=== PATIENT | male | born 1980 | race Caucasian/White ===

== ENCOUNTER 2017-10-12 16:22 | Emergency (ER) | payer SELFPAY ==
[2017-10-12 16:30] VITALS: BP 135/72
[2017-10-12] MEDS ORDERED: 0.9 % SODIUM CHLORIDE 1,000 ML IV SCH (16:30)
[2017-10-12] MEDS: ONDANSETRON HCL/PF 4 MG/ 2ML VIAL IVP ONE ×2 (16:40→18:23)
[2017-10-12] MEDS: 0.9 % SODIUM CHLORIDE 1,000 ML IV SCH ×2 (16:40→17:33)
[2017-10-12] MEDS: 0.9 % SODIUM CHLORIDE 1,000 ML IV ONE (17:03)
--- NOTE | 2017-10-12 17:10 | ED Physician Documentation ---
General Adult - HISTORIAN Historian: patient - HPI Stated Complaint: N/V Chief Complaint: General Adult Additional Information: Olman has been working inthe heat for the last several days. Has been sweating a lot. Has not urinated since this AM. States that he has been trying to drink a lot of fluids. Feels that he may have gotten overheated today. Several hours ago he became nauseated and has vomited several time, some clesr emisis. Has started to have some muscle cramps/aches. Has a mild headache. Feels the same way he did before when he became overheated. Has not had any fever or chills. No one else at home is sick. No rash noted. Onset: hours Timing: still present Severity: moderate - ROS CONST: sweating, weakness. denies: fever, chills CVS/RESP: none. denies: chest pain, shortness of breath GI/: abdominal pain (mild cramping), vomiting, nausea. denies: problems urinating, diarrhea MS/SKIN/LYMPH: denies: rash NEURO/PSYCH: headache, dizziness, tingling - PAST HX Past History: none Other History: none Surgeries/Procedures: none Allergies/Adverse Reactions: Allergies Allergy/AdvReac Type Severity Reaction Status Date / Time No Known Allergies Allergy Verified 10/12/17 16:29 Home Medications: Ambulatory Orders Medication Instructions Recorded NK [NK] 10/12/17 - SOCIAL HX Smoking History: less than 1 pack/day Alcohol Use: occasionally Drug Use: marijuana - FAMILY HX Family History: No - VITAL SIGNS Vital Signs: Vital Signs Temp Pulse Resp BP Pulse Ox 98.6 F 76 17 135/72 100 10/12/17 16:22 10/12/17 16:22 10/12/17 16:22 10/12/17 16:22 10/12/17 16:22 - REVIEWED ASSESSMENTS Nursing Assessment Reviewed: Yes Vitals Reviewed: Yes Progress - Progress Progress: 17:22 Patient complaining of some abd cramping pain, no diarrhea 17:54 Patient states that he is feeling some better. 18:28 Patient discomfort is down to 4 from a 10, still feels nauseated some. No further vominting noted. Muscle cramps are better . 18:45 Conitnues to slowly get better. Patient feels that he will be able to keep fluids down. Was given option of getting a third liter or being admitted observation but did not want to do so. ED Results Lab/Radiology - Orders Orders: ED Orders Category Date Time Status CBC/PLATELET/DIFF Routine Lab 10/12/17 Ordered CMP Routine Lab 10/12/17 Ordered URINALYSIS Routine Lab 10/12/17 Uncollected 0.9 % Sodium Chloride [Normal Saline] 1,000 ml Med 10/12/17 16:30 Ordered IV .Q1H Ondansetron HCl/Pf [Zofran 4 mg/2 ml] Med 10/12/17 16:27 Discontinued 4 mg IVP NOW ONE General Adult Physical Exam - PHYSICAL EXAM GENERAL APPEARANCE: mild distress EENT: eye inspection normal, dry mucous membranes NECK: normal inspection, thyroid normal, supple. No: lymphadenopathy, stiff neck RESPIRATORY: no resp distress, chest non-tender, breath sounds normal. No: wheezes, rales, rhonchi CVS: reg rate & rhythm, heart sounds normal, equal pulses, no murmur ABDOMEN: soft, no organomegaly, normal bowel sounds, no abdominal bruit, no distension, non-tender BACK: normal inspection SKIN: normal color, other (moist) NEURO: oriented X3, mood/affect nml, cognition normal Discharge Clincal Impression: Heat exhaustion Qualifiers: Encounter type: initial encounter Qualified Code(s): T67.5XXA - Heat exhaustion , unspecified, initial encounter Referrals: Primary Doctor,No [Primary Care Provider] - 2 Days Additional Instructions: You need to be drinking a lot of fluids with some sports drink. You need to be drinking enough that when you urinate it is light yellow color. Home and rest in a cool environment. If you have any further problems to return to the ED. Condition: Stable Disposition: 01 HOME, SELF-CARE Decision to Admit: NO Date of Decison to Admit: 10/12/17 Decision Time: 18:37
[2017-10-12 17:11] LABS: BASOPHILS % 0.2 (0.0-1.5); EOSINOPHILS % 0.5 % (0.0-6.8); MEAN CORPUSCULAR HEMOGLOBIN 35.3 pg (28.0-34.0); MEAN CORPUSCULAR VOLUME 96.1 fl (80.0-100.0); MONOCYTES % 4.3 % (0.0-11.0)
[2017-10-12 17:17] LABS: eGFR (African) > 60; eGFR (Non-African) > 60
[2017-10-12] MEDS ORDERED: 0.9 % SODIUM CHLORIDE 1,000 ML IV ONE (17:26)
[2017-10-12] MEDS: KETOROLAC TROMETHAMINE 30 MG/1ML VIAL IVP ONE (17:31)
[2017-10-13 09:00] LABS: APPEARANCE,URINE CLOUDY (CLEAR); COLOR,URINE BROWN (YELLOW); OCCULT BLOOD,URINE TRACE-INTACT (NEGATIVE); UROBILINOGEN URINE 0.2 Eu (0.2-1.0)
== END 2017-10-12 18:50 | disposition home or self-care (01) ==
LOC: ED 16:22
DX: R11.2 Nausea with vomiting, unspecified (principal); R10.9 Unspecified abdominal pain; T67.5XXA Heat exhaustion, unspecified, initial encounter
CPT/HCPCS: 80053; 81002; 85025; J1885; J2405; J7030; 96365; 96366; 96375; S1016

== ENCOUNTER 2018-03-06 19:46 | Emergency (ER) | payer SELFPAY ==
--- NOTE | 2018-03-06 19:52 | ED Physician Documentation ---
Animal Bite - HISTORIAN Historian: patient - HPI Stated Complaint: cat bite - known cat Chief Complaint: Animal Bite Onset: days ago (3) Where: home Animal: cat, family pet Appearance of Animal: appeared well Animal's Immunization Status: UTD Observation/ Capture of Animal: animal is known Context of Attack: "provoked" attack Severity of Injury: bitten (on right hand ) Associated Symptoms: other (swelling ) Further Comments: yes (He states he was trying to put the cat in a cat house that he was making to keep the cat warm and it got mad at bit him. He states it started to swell and he notes it increases. No fever. No other complaints) - ROS CONST: none MS/SKIN/LYMPH: rash - PAST HX Past History: none Immunizations: tetanus Allergies/Adverse Reactions: Allergies Allergy/AdvReac Type Severity Reaction Status Date / Time No Known Allergies Allergy Verified 03/06/18 20:07 Home Medications: Ambulatory Orders Medication Instructions Recorded NK 10/12/17 - SOCIAL HX Smoking History: cigarettes Alcohol Use: none Drug Use: none - FAMILY HX Family History: none - VITAL SIGNS Vital Signs: Vital Signs Temp Pulse Resp BP Pulse Ox 98.6 F 92 H 16 115/75 97 03/06/18 19:47 03/06/18 21:01 03/06/18 21:01 03/06/18 21:01 03/06/18 21:01 - REVIEWED ASSESSMENTS Nursing Assessment Reviewed: Yes Vitals Reviewed: Yes ED Results Lab/Radiology - Orders Orders: ED Orders Category Date Time Status Amoxicillin/Potassium Clav [Augmentin 875Mg/125Mg] Med 03/06/18 20:04 Discontinued 1 each PO NOW ONE Diph,Pertuss(Acell),Tet Vac/Pf [Adacel] Med 03/06/18 20:03 Discontinued 0.5 ml IM .ONCE ONE oxyCODONE HCL/ACETAMINOPHEN [Percocet 5-325 mg Tablet] Med 03/06/18 20:18 Discontinued 1 each PO NOW ONE Animal Bite Physical Exam - Physical Exam General Appearance: no acute distress, alert Neuro/Vascular/Tendon: no vascular compromise, oriented x3, sensation nml, CN's nml as tested, ROM nml, warmth, abnml cap refill Resp/CVS: chest non-tender, breath sounds nml, heart sounds nml, no resp. distress, lungs clear Abdomen: uninjured,nml inspection Back: uninjured, nml inspection Extremities: other (right hand with redness and swelling to first finger at hand to wrist. Line drawn to show of extent for further redness ) Discharge Clincal Impression: Cat bite of right hand Qualifiers: Encounter type: initial encounter Qualified Code(s): S61.451A - Open bite of right hand, initial encounter Referrals: Primary Doctor,No [Primary Care Provider] - 2 Days Comments: 1. Augmentin 875mg/125 mg take 1 by mouth twice daily 2. Keep ice to hand 3. Watch for extension of swelling and redness 4. Follow up with PCP in 2-4 days 5. Return to ER for any concerns Condition: Stable Disposition: 01 HOME, SELF-CARE Decision to Admit: NO Date of Decison to Admit: 03/06/18 Decision Time: 21:00
[2018-03-06 20:03] VITALS: BP 115/75
[2018-03-06] MEDS ORDERED: DIPH,PERTUSS(ACELL),TET VAC/PF 0.5 ML DISP.SYRIN IM ONE (20:03)
[2018-03-06] MEDS ORDERED: AMOXICILLIN/POT 875/125 1 EACH PO ONE (20:04)
[2018-03-06] MEDS ORDERED: oxyCODONE/ACETAMINOPHEN 5/325 TABLET PO ONE (20:18)
== END 2018-03-06 20:30 | disposition home or self-care (01) ==
LOC: ED 19:46
DX: S61.451A Open bite of right hand, initial encounter (principal); W55.01XA Bitten by cat, initial encounter; Y93.K9 Activity, other involving animal care; Y92.009 Unspecified place in unspecified non-institutional (private) residence as the place of occurrence of the external cause
CPT/HCPCS: 90471; 90715; 99282; A9270